=== PATIENT | female | born 1965 | race Caucasian/White ===

== ENCOUNTER 2024-08-05 09:49 | Emergency (ER) | payer BC, SELFPAY ==
--- NOTE | 2024-08-05 09:51 | XR_ITS ---
Examination: AP chest single view Technique one AP portable upright chest single view Exam date and time: August 05, 2024 1026 hours INDICATIONS: Chest pain today FINDINGS: Normal heart size. The lungs are clear. The osseous structures are intact IMPRESSION: No active disease
--- NOTE | 2024-08-05 09:51 | EKG_ITS ---
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
[2024-08-05 09:54] VITALS: BP 157/78; PULSE 104; RESP 22; TEMP 36.6; O2SAT 100; BMI 28.2
--- NOTE | 2024-08-05 09:58 | XR_ITS ---
Examination: CT brain head without contrast. 2-D sagittal coronal reconstructions Date and time of exam:August 05, 2024 1037 hours INDICATIONS: Onset dizziness and shaking today CTDI: vol (mGy):50.1 DLP: (mGycm):1008 Technique: Multiple CT axial sections of the brain have been obtained, 5 mm slice thickness. Contrast has not been administered. 2-D sagittal, coronal reconstructions have been obtained Low dose protocols were performed. One or more of the following dose reduction techniques were used; automated exposure control, adjustment of the mA and/or KV according to patient size, use of iterative reconstruction technique. Findings: No significant ventricular enlargement. Intra-axial or extra-axial hemorrhage density is not seen. No mass effect or midline shift Basal cisterns are not remarkable. Fourth ventricle is midline. Cranial vault intact. Impression: Negative for acute hemorrhage, mass effect or midline shift If symptoms persist, consider brain MRI follow-up
--- NOTE | 2024-08-05 09:58 | PD.EDRME ---
Rapid Medical Screening Exam RME Arrival date/time: 08/05/24 09:49 59-year-old female presents to the emergency department hyperventilating reports of bilateral arm tingling and leg tingling. Reports her symptoms started with ear pain that led to dizziness last night. Her symptoms progressed causing her to hyperventilate, bilateral arm tingling and leg tingling. + Chest pain I have greeted and performed a focused initial assessment of this patient. Initial appropriate labs ordered at this time. A comprehensive ED assessment and evaluation of the patient and analysis of all test and completion of medical decision making process will be conducted by additional ED provider. Chief Complaint: General Adult/Misc Complain Time Seen by Provider: 08/05/24 09:50 Vital signs: Vital Signs Temperature 97.9 F 08/05/24 09:54 Pulse Rate 104 H 08/05/24 09:54 Respiratory Rate 22 H 08/05/24 09:54 Blood Pressure 157/78 H 08/05/24 09:54 Pulse Oximetry (%) 100 08/05/24 09:54 Oxygen Delivery Method Room Air 08/05/24 09:54
[2024-08-05 10:28] LABS: Basophils % (Auto) 0 % (0-2.5); Eosinophils % (Auto) 1 % (0-10); Hematocrit 41.4 % (36.0-46.0); Hemoglobin 14.8 g/dL (12.0-16.0); Immature Granulocytes % (Auto) 0 % (0-0); Immature Granulocytes Auto 0.01 Thou/mm3 (0.00-0.00); Lymphocytes # (Auto) 1.5 Thou/mm3 (1.0-4.8); Lymphocytes % (Auto) 31 % (10-50); Mean Corpuscular HGB Conc 35.7 g/dl (31.0-37.0); Mean Corpuscular Hemoglobin 30.3 pg (25.0-35.0); Mean Corpuscular Volume 85 fL (80-100); Monocytes # (Auto) 0.3 Thou/mm3 (0.0-0.8); Monocytes % (Auto) 6 % (0-12); Neutrophils % (Auto) 62 % (37-80); Nucleated Red Blood Cell % 0 /100 WBC (0); Platelet Count 254 Thou/mm3 (140-440); Red Blood Count 4.89 Miln/mm3 (4.00-5.20); White Blood Count 4.9 Thou/mm3 (3.6-11.0)
[2024-08-05 10:44] LABS: B-Type Natriuretic Peptide < 20 pg/mL (0-100)
[2024-08-05 10:47] LABS: Alanine Aminotransferase 16 U/L (10-49); Albumin, Serum 4.6 gm/dL (3.4-4.8); Albumin/Globulin Ratio 1.7 (1.2-2.2); Alkaline Phosphatase 68 U/L (46-116); Anion Gap 14 (7-16); Aspartate Amino Transferase 17 U/L (0-34); BUN/Creatinine Ratio 19 Ratio (12-20); Bilirubin,Total 0.6 mg/dL (0.3-1.2); Blood Urea Nitrogen 15 mg/dL (9-23); Calcium 9.4 mg/dL (8.3-10.6); Calcium (Corrected) 9.4 mg/dL (8.5-10.1); Carbon Dioxide 19.5 mMol/L (20.0-31.0); Chloride 104 mMol/L (98-107); Creatinine (Component) 0.8 mg/dL (0.6-1.3); Estimated Creatinine Clearance 79.5 mL/min (>60); Globulin 2.7 gm/dL (2.3-3.5); Glucose 140 mg/dL (74-106); Lipase 51 U/L (12-53); Magnesium 1.8 mg/dL (1.6-2.6); Osmolality,Calculated 276 (275-295); Potassium 3.2 mMol/L (3.4-5.1); Sodium 137 mMol/L (136-145); Total Protein 7.3 gm/dL (5.7-8.2); Troponin I < 0.002 ng/mL (0.0-0.045); eGFR > 60 See Note
[2024-08-05 10:48] VITALS: PULSE 87
[2024-08-05 10:49] LABS: Prothrombin Time 10.9 Seconds (9.0-12.2)
--- NOTE | 2024-08-05 11:20 | EDNOTE_ITS ---
ED Dizzyness RME/HPI General Chief Complaint: General Adult/Misc Complain Stated Complaint: HAND AND FEET ARE NUMB Time Seen by Provider: 08/05/24 09:50 Arrival date/time: 08/05/24 09:49 Limitations: no limitations RME / HPI RME / HPI Narrative: 08/05/24 09:49 59-year-old female presents to the emergency department hyperventilating reports of bilateral arm tingling and leg tingling. Reports her symptoms started with ear pain that led to dizziness last night. Her symptoms progressed causing her to hyperventilate, bilateral arm tingling and leg tingling. + Chest pain I have greeted and performed a focused initial assessment of this patient. Initial appropriate labs ordered at this time. A comprehensive ED assessment and evaluation of the patient and analysis of all test and completion of medical decision making process will be conducted by additional ED provider. DR. GIRMM MAIN ED EVALUATION: 59 year old female with history of hypertension presents to the ED for evaluation of headache and dizziness today. Patient states at about 11pm last night she developed a headache, described as aching and located diffusely, rating as moderate. Accompanied by left ear pain. States due to the pain she was unable to sleep well and while sitting on the couch at 3AM today, she began to feel dizzy. Describes the dizziness as a swaying sensation that was not alleviated with lying down. Accompanied by nausea and vomiting. During that time denied any unilateral weakness, word findings difficulties, changes in speech, or loss of movement/sensation. However, at approximately 09:30 AM while sitting in the car en route to the ED, she began to have chest pain and bilateral upper and lower extremity tingling. States once she arrived to the ED was unable to get out of the car on her own and required assistance which is new and unusual for her. Per family at bedside, the patient is independent and lives an active lifestyle. Patient denies any history of similar symptoms. Denies any recent illness, fevers, chills, sweats, shortness of breath, cough, abdominal pain, diarrhea, or urinary symptoms. Family in the room add the patient has been under stress recently although patient denies feeling anxious or stressed. Related Data Allergies Allergy/AdvReac Type Severity Reaction Status Date / Time ampicillin Allergy Severe BREATHING Verified 04/11/20 18:44 PROBLEM AND HIVES. ketorolac tromethamine Allergy Severe ANAPHYLAXIS Verified 04/11/20 18:44 levofloxacin Allergy Severe HIVES AND Verified 04/11/20 18:44 DIFFICULTY BREATHING moxifloxacin Allergy Severe BREATHING Verified 04/11/20 18:44 PROBLEM AND HIVES Penicillins Allergy Severe BREATHING Verified 04/11/20 18:44 PROBLEM AND HIVES morphine Allergy ANAPHYLAXIS Verified 04/11/20 18:44 Review of Systems Review of Systems Narrative Review of Systems: GEN: No fever, no chills, no weight loss EYES: No discharge, no visual changes, no pain HEENT: +Left ear pain, no congestion, no sore throat PULM: No shortness of breath, no cough, no congestion CV: No chest pain, no dyspnea on exertion, no palpitations GI: +nausea, +vomiting, no diarrhea, no pain, no constipation : No frequency, no urgency, no dysuria MUSC/SKEL: No joint pain, no back pain SKIN: No rash PSYCH: No hallucinations, no depression, +increased stress per family HEME/LYMPH: No easy bleeding or bruising tendencies NEURO: +headache, +BL upper and lower extremity tingling, +dizziness Past Medical History Past Medical History CARDIAC: Positive Cardiac Disorders and Hypertension RESPIRATORY: Positive Respiratory Disorders and Pneumonia GASTROINTESTINAL: Positive Gastrointestinal Disorders and Irritable Bowel GENITOURINARY: Positive Genitourinary Disorders (prev. mass in left ureter) REPRODUCTIVE: Positive Previous Pregnancies OTHER HISTORY: Positive Anesthesia Reactions Family History FAMILY HISTORY: Positive Family Cardiac Disorders (heart disease, [place]) Surgical History SURGICAL: Positive Abdominal Surgery and Hysterectomy Social History SMOKING STATUS: Never smoker ED Exam General Limitations: Present no limitations General appearance: Present alert and anxious (tearful ) Head Head exam: Present atraumatic Eye Eye exam: Present normal appearance, PERRL and EOMI ENT ENT exam: Present normal exam, normal oropharynx and mucous membranes moist Neck Neck exam: Present normal inspection, full ROM and trachea midline Chest Chest inspection: Present normal inspection and symmetric chest wall rise Respiratory Respiratory exam: Present normal lung sounds bilaterally Cardiovascular Cardiovascular exam: Present regular rate, normal rhythm and normal heart sounds Abdominal Exam Abdominal exam: Present soft and normal bowel sounds Extremities Exam Extremities exam: Present normal inspection and full ROM Back Exam Back exam: Present normal inspection and full ROM Neurological Exam Neurological exam: Present alert, oriented X3, CN II-XII intact and reflexes normal; Absent motor sensory deficit Psychiatric Psychiatric exam: Present normal affect and normal mood Skin Skin exam: Present warm, dry, intact and normal color Course Quality Measures none Orders Category Date Time Status Boot Turner STAT Care 08/05/24 09:51 Completed Continuous Pulse Oximetry ONCE Care 08/05/24 09:51 Completed EKG (ED ONLY) *Do not use* NOW Care 08/05/24 09:51 Completed Insert IV STAT Care 08/05/24 09:[address] head/brain wo con Stat Exams 08/05/24 09:58 Completed EKG (ED Only) Stat Exams 08/05/24 09:51 Draft XR chest 1V portable Stat Exams 08/05/24 09:51 Completed B-Type Natriuretic Peptide Stat Lab 08/05/24 10:17 Completed CBC Stat Lab 08/05/24 10:17 Completed Comprehensive Metabolic Panel Stat Lab 08/05/24 10:17 Completed Lipase Stat Lab 08/05/24 10:17 Completed Magnesium Stat Lab 08/05/24 10:17 Completed Prothrombin Time with INR Stat Lab 08/05/24 10:17 Completed Troponin I Stat Lab 08/05/24 10:17 Completed Acetaminophen Ivpb [Ofirmev Inj] Med 08/05/24 12:28 Discontinued 1,000 mg in 100 ml IV X1 LORazepam [Ativan Inj] Med 08/05/24 12:30 Discontinued 1 mg IVP X1 ONE Potassium Chloride [K-Dur] Med 08/05/24 15:50 Discontinued 40 meq PO X1 ONE Oxygen Delivery NOW RT 08/05/24 09:51 Completed Reevaluation(s) Reevaluation #1: Had a long discussion with patient. We reviewed all the results, analysis, and treatment plans. Patient is amenable to discharge. Strict return precautions were outlined. Patient was discharged in stable condition. Time: 16:00 Vital Signs Vital signs: Vital Signs Temperature 97.9 F 08/05/24 09:54 Pulse Rate 104 H 08/05/24 09:54 Respiratory Rate 22 H 08/05/24 09:54 Blood Pressure 157/78 H 08/05/24 09:54 Pulse Oximetry (%) 100 08/05/24 09:54 Oxygen Delivery Method Room Air 08/05/24 09:54 Pulse ox is 100% on room air which is adequate. Dizziness MDM Narrative MDM Narrative:: Nimisha Piña am scribing for and in the presence of Dr. Grimm. Patient data External records reviewed:: [facility] previous records (/I reviewed RME note from 04/11/2020) Clinical information provided by:: patient and family Social determinants that could affect healthcare access:: none Patient has the following chronic illnesses:: hypertension How is presenting disease/condition affected by chronic disease/condition?: exacerbated by Evaluation data The following diagnostics were reviewed and interpreted by me:: lab results, radiology exam(s) and EKG tracing(s) (Sinus rhythm, rate 85, QT/QTc 393/436ms, no acute ischemic changes, no STEMI ) Lab and/or radiology exams considered but not ordered:: None Interpretation Summary: Ordering Physician: Jerad [facility]res[facility] L[facility]pez Date of Service: 08/05/24 Procedure(s): XR chest 1V portable Accession Number(s): [id number] cc: Roque Hopper MD; Maury Nur MD; Jerad ColindresKA[facility]ie López~ Examination: AP chest single view Technique one AP portable upright chest single view Exam date and time: August 05, 2024 1026 hours INDICATIONS: Chest pain today FINDINGS: Normal heart size. The lungs are clear. The osseous structures are intact IMPRESSION: No active disease Dictated By: Roque Hopper MD Signed By: <Electronically signed by Roque Hopper MD in OV> 08/05/24 1031 Ordering Physician: Jerad [facility]indresKA[facility] L[facility] Date of Service: 08/05/24 Procedure(s): CT head/brain wo con Accession Number(s): [id number] cc: Roque Hopper MD; Maury Nur MD; Jerad ColindresKA[facility]ie López~ Examination: CT brain head without contrast. 2-D sagittal coronal reconstructions Date and time of exam:August 05, 2024 1037 hours INDICATIONS: Onset dizziness and shaking today CTDI: vol (mGy):50.1 DLP: (mGycm):1008 Technique: Multiple CT axial sections of the brain have been obtained, 5 mm slice thickness. Contrast has not been administered. 2-D sagittal, coronal reconstructions have been obtained Low dose protocols were performed. One or more of the following dose reduction techniques were used; automated exposure control, adjustment of the mA and/or KV according to patient size, use of iterative reconstruction technique. Findings: No significant ventricular enlargement. Intra-axial or extra-axial hemorrhage density is not seen. No mass effect or midline shift Basal cisterns are not remarkable. Fourth ventricle is midline. Cranial vault intact. Impression: Negative for acute hemorrhage, mass effect or midline shift If symptoms persist, consider brain MRI follow-up Dictated By: Roque Hopper MD Signed By: <Electronically signed by Roque Hopper MD in OV> 08/05/24 1111 Medications / Prescriptions Medications or Prescriptions considered but not ordered:: None Medication administrations:: Medication Administration History Discontinued Medications Acetaminophen (Ofirmev Inj) 1,000 mg in 100 mls @ 250 mls/hr IV X1 ONE Stop: 08/05/24 12:51 Last Admin: 08/05/24 13:07 Dose: 250 mls/hr Documented By: SONG Lorazepam (Lorazepam 2 Mg/Ml Vial) 1 mg IVP X1 ONE Stop: 08/05/24 12:31 Last Admin: 08/05/24 18:25 Dose: Not Given Documented By: MaryanneT Non-Admin Reason: Patient Refused Potassium Chloride (Potassium Chloride 20 Meq Tabcr) 40 meq PO X1 ONE Stop: 08/05/24 15:51 Last Admin: 08/05/24 18:24 Dose: 40 meq Documented By: SONG See above Consultations Consultation(s) initiated? (list below): No Diagnosis Dizziness Differential Diagnosis: benign paroxysmal positional vertigo, orthostatic hypotension, vertebral basilar insufficiency, cerebrovascular accident and transient cerebral ischemia Most likely diagnosis given after review of the tests above:: Paresthesia Hypokalemia Stress disorder Admission Indicated Admission indicated?: not indicated Explain why admission is indicated or not indicated:: Does not meet admission criteria Admission Request Was there a request for admission?: No Disposition Plan Disposition Plan: Discharge Discharge Attestation Discharge Attestation: The patient and all family members were given an opportunity to ask questions and understood the discharge instructions. Discharge instructions specifically effects, indications for sooner follow up or return to the emergency department, and the expected course of current diagnosis. Patient condition: Stable Discharge Plan Plan Patient Disposition: HOME (Self Care) Prescriptions/Referrals Referrals: Maury Nur MD [Primary Care Provider] - In 1 week Problem List Clinical Impression: Paresthesia, Hypokalemia, Acute stress disorder Patient/Caregiver Discharge Instructions Education Materials: Responding Better to Stress, ED Hypokalemia, ED Paraesthesias Additional Instructions: Follow up with your doctor within 2-3 days for reassessment. Return to the ED if your develop any new or worsening symptoms. Print Language: Macedonian Stand Alone Forms: María Award Info., Work/School Release, Patient Portal Info Letter
[2024-08-05 12:02] VITALS: PULSE 83; RESP 18; RESP 99
[2024-08-05] MEDS: ACETAMINOPHEN IVPB 1,000 MG/100 ML VIAL 250 MG IV (13:07)
[2024-08-05 14:20] VITALS: BP 130/88; PULSE 90; RESP 12; TEMP 36.1; O2SAT 98
[2024-08-05 18:08] VITALS: BP 141/89; PULSE 88; RESP 12; TEMP 37.2; O2SAT 98
[2024-08-05] MEDS: POTASSIUM CHLORIDE 20 mEq TABCR 40 MEQ PO (18:24)
[2024-08-05 18:38] VITALS: BP 141/89; PULSE 88; RESP 12; TEMP 37.2; O2SAT 98
== END 2024-08-05 18:39 | disposition home or self-care (01) ==
PROVIDERS: Nurse Practitioner Primary Care; Emergency Provider Family Medicine; PCP Family Medicine
DX: R20.2 Paresthesia of skin (principal); E87.6 Hypokalemia; F43.0 Acute stress reaction; R07.9 Chest pain, unspecified; I10 Essential (primary) hypertension; R51.9 Headache, unspecified; R42 Dizziness and giddiness; H92.02 Otalgia, left ear
CPT/HCPCS: 36415; 70450; 71045; 80053; 83690; 83735; 83880; 84484; 85025; 85610; 93005; 99284; J0131; A9270

== ENCOUNTER → 2024-08-18 | Outpatient (CLI) | payer BC, SELFPAY ==
--- NOTE | 2024-08-18 14:30 | ECHO_ITS ---
Transthoracic Echo Report Ht (in): 65 Wt (lb): 164 Exam Location: Echo Lab Status: Preadmit Second Operator: CHARAN Pérez^^^^ Indications: Procedure Performed: BP: / HR: MEASUREMENTS (Male / Female) Normal Values 2D ECHO LV Diastolic Diameter PLAX 3.4 cm 4.2 - 5.9 / 3.9 - 5.3 cm LV Systolic Diameter PLAX 2.2 cm IVS Diastolic Thickness 1.0 cm 0.6 - 1.0 / 0.6 - 0.9 cm LVPW Diastolic Thickness 1.0 cm 0.6 - 1.0 / 0.6 - 0.9 cm LV Relative Wall Thickness 0.6 LVOT Diameter 1.8 cm Aortic Root Diameter 3.5 cm LA Systolic Diameter LX 3.5 cm 3.0 - 4.0 / 2.7 - 3.8 cm LA Volume Index 21.4 cm?/m? 16 - 28 cm?/m? Ascending Aorta Diameter 3.0 cm DOPPLER AV Peak Velocity 133.5 cm/s AV Peak Gradient 7.1 mmHg AV Mean Gradient 5.0 mmHg AV Velocity Time Integral 27.5 cm LVOT Peak Velocity 98.3 cm/s LVOT Peak Gradient 3.9 mmHg LVOT Velocity Time Integral 25.1 cm AV Area Cont Eq vti 2.3 cm? AV Area Cont Eq pk 1.9 cm? MV Area PHT 3.7 cm? Mitral E Point Velocity 77.0 cm/s Mitral A Point Velocity 76.6 cm/s Mitral E to A Ratio 1.0 LV E' Lateral Velocity 6.8 cm/s Mitral E to LV E' Lateral Ratio 11.3 LV E' Septal Velocity 6.7 cm/s Mitral E to LV E' Septal Ratio 11.4 TR Peak Velocity 244.0 cm/s TR Peak Gradient 23.8 mmHg PV Peak Velocity 99.0 cm/s PV Peak Gradient 3.9 mmHg RVOT Peak Velocity 44.3 cm/s FINDINGS Left Ventricle Normal left ventricular size, wall thickness, systolic function with no obvious regional wall motion abnormalities.there is grade I diastolic dysfunction of the left ventricle (impaired relaxation pattern).the left ventricular ejection fraction is normal, estimated at 55-60%. Right Ventricle The right ventricle is normal in size and systolic function. The estimated right ventricular systolic pressure, 25 mmHg. Left Atrium The left atrium is normal by two-dimensional, color flow and Doppler imaging with no structural abnormalities, no thrombus formation present. Right Atrium The right atrium is normal by two-dimensional imaging, color flow and Doppler imaging with no structural abnormalities, no thrombus formation present. Atrial Septum The interatrial septum appears normal with no evidence of a shunt. Aorta The aorta is normal by two-dimensional, color flow and Doppler interrogation. Mitral Valve Trace to mild mitral regurgitation. Mild mitral annular calcification. Aortic Valve The aortic valve is trileaflet and normal by two-dimensional, color flow and Doppler interrogation. There is no significant aortic valve regurgitation. Tricuspid Valve There is mild tricuspid valve regurgitation. Pulmonic Valve Trivial pulmonic valve regurgitation. Vessels The pulmonary artery appears normal. The inferior vena cava pulmonary and hepatic veins appear normal. Pericardium The pericardium is normal by two-dimensional imaging. There is no significant pericardial effusion. CONCLUSIONS Indication: Shortness of breath Normal LV size and function with an estimated EF of 55 to 60%. Diastolic function appears normal Normal RV size and function with. Estimated RVSP normal at 25 mmHg. Trace PI, trace MR and mild TR. No evidence of any pericardial effusion Sharad Mead (Electronically Signed) Final Date: 21 August 2024 06:03
== END | disposition home or self-care (01) ==
LOC: SDIM 14:01
PROVIDERS: PCP Family Medicine; Referring Provider Family Medicine; Visit Provider Family Medicine
DX: I08.1 Rheumatic disorders of both mitral and tricuspid valves (principal)
CPT/HCPCS: 93306

== ENCOUNTER 2024-11-21 14:08 | Emergency (ER) | payer BC, SELFPAY ==
[2024-11-21 14:09] VITALS: BMI 26.2
[2024-11-21 14:15] VITALS: BP 151/89; PULSE 99; RESP 20; TEMP 36.7; O2SAT 99
--- NOTE | 2024-11-21 14:29 | XR_ITS ---
Examination: CT abdomen and pelvis without contrast. Coronal 3-D reconstructions. Sagittal 2-D reconstructions. Date and time of exam:November 21, 2024, 1504 hrs. Indications: Left-sided abdominal pain vomiting blood in the stool today CTDI: vol (mGy): 8.42 DLP: (mGycm): 133. Technique: Axial images of the abdomen have been obtained, 3 mm slice thickness Intravenous contrast material has not been administered. Low dose protocols were performed. One or more of the following dose reduction techniques were used; automated exposure control, adjustment of the mA and/or KV according to patient size, use of iterative reconstruction technique. Findings: No focal liver or splenic lesions. Absent gallbladder. No pancreatic mass. No renal or ureteral calculi. No hydronephrosis. Aorta normal size. Normal appendix. Severe inflammatory change involving the entire colon with wall thickening No bladder mass Prominent osteopenia with chronic osteoporotic compression T11 Impression: Severe diffuse colitis pattern, differential would include ulcerative colitis, Crohn's disease
--- NOTE | 2024-11-21 14:30 | PD.EDRME ---
Rapid Medical Screening Exam RME Arrival date/time: 11/21/24 14:08 59-year-old female with no known medical history presents to the emergency room with a chief complaint of 10 out of 10 abdominal pain and passing blood clots in her stool x 2 days I have greeted and performed a focused initial assessment of this patient. A comprehensive ED assessment and evaluation of the patient, analysis of all test results, and completion of the medical decision making process will be conducted by additional ED providers. Chief Complaint: Abdominal Pain Time Seen by Provider: 11/21/24 14:10 Vital signs: Vital Signs Temperature 98.1 F 11/21/24 14:15 Pulse Rate 99 11/21/24 14:15 Respiratory Rate 20 11/21/24 14:15 Blood Pressure 151/89 H 11/21/24 14:15 Pulse Oximetry (%) 99 11/21/24 14:15 Oxygen Delivery Method Room Air 11/21/24 14:15 Vital signs reviewed by provider: Yes
[2024-11-21 14:51] LABS: Basophils # (Auto) 0.0 Thou/mm3 (0.0-0.2); Basophils % (Auto) 0 % (0-2.5); Eosinophils # (Auto) 0.1 Thou/mm3 (0.0-0.5); Eosinophils % (Auto) 0 % (0-10); Hematocrit 42.4 % (36.0-46.0); Hemoglobin 15.1 g/dL (12.0-16.0); Immature Granulocytes Auto 0.02 Thou/mm3 (0.00-0.00); Lymphocytes # (Auto) 1.5 Thou/mm3 (1.0-4.8); Lymphocytes % (Auto) 14 % (10-50); Mean Corpuscular HGB Conc 35.6 g/dl (31.0-37.0); Mean Corpuscular Hemoglobin 30.8 pg (25.0-35.0); Mean Corpuscular Volume 86 fL (80-100); Monocytes # (Auto) 0.5 Thou/mm3 (0.0-0.8); Monocytes % (Auto) 4 % (0-12); Neutrophils # (Auto) 9.3 Thou/mm3 (1.8-7.7); Neutrophils % (Auto) 82 % (37-80); Nucleated Red Blood Cell # 0.00 Thou/mm3 (0.00-0.00); Nucleated Red Blood Cell % 0 /100 WBC (0); Platelet Count 262 Thou/mm3 (140-440); RDW Standard Deviation 38.5 fL (36.4-46.3); Red Blood Count 4.91 Miln/mm3 (4.00-5.20); White Blood Count 11.4 Thou/mm3 (3.6-11.0)
[2024-11-21] MEDS: ACETAMINOPHEN 325 MG TABLET 650 MG PO (14:58)
[2024-11-21 15:06] LABS: Alanine Aminotransferase 12 U/L (10-49); Albumin, Serum 4.5 gm/dL (3.4-4.8); Albumin/Globulin Ratio 1.8 (1.2-2.2); Alkaline Phosphatase 63 U/L (46-116); Anion Gap 11 (7-16); Aspartate Amino Transferase 14 U/L (0-34); BUN/Creatinine Ratio 18 Ratio (12-20); Bilirubin,Total 0.9 mg/dL (0.3-1.2); Blood Urea Nitrogen 14 mg/dL (9-23); Calcium 9.2 mg/dL (8.3-10.6); Calcium (Corrected) 9.2 mg/dL (8.5-10.1); Carbon Dioxide 23.8 mMol/L (20.0-31.0); Chloride 106 mMol/L (98-107); Creatinine (Component) 0.8 mg/dL (0.6-1.3); Estimated Creatinine Clearance 74.2 mL/min (>60); Globulin 2.5 gm/dL (2.3-3.5); Glucose 102 mg/dL (74-106); Lipase 39 U/L (12-53); Osmolality,Calculated 281 (275-295); Potassium 3.6 mMol/L (3.4-5.1); Sodium 141 mMol/L (136-145); Total Protein 7.0 gm/dL (5.7-8.2); eGFR > 60 See Note
[2024-11-21 15:54] VITALS: BP 150/93; PULSE 88; RESP 17; TEMP 36.7; O2SAT 99
--- NOTE | 2024-11-21 16:41 | PD.EDABDPN ---
ED Abdominal Pain RME/HPI General Chief Complaint: Abdominal Pain Stated complaint: ABD PAIN W/ VOMITING; STOOLS ARE BLOOD W/ CLOTS Time seen by provider: 11/21/24 14:10 Arrival date/time: 11/21/24 14:08 Limitations: no limitations RME / HPI RME / HPI narrative: 11/21/24 14:08 59-year-old female with no known medical history presents to the emergency room with a chief complaint of 10 out of 10 abdominal pain and passing blood clots in her stool x 2 days I have greeted and performed a focused initial assessment of this patient. A comprehensive ED assessment and evaluation of the patient, analysis of all test results, and completion of the medical decision making process will be conducted by additional ED providers. DR. FILOMENA MIKE ED EVALUATION 59 year old female with history of irritable bowel syndrome, hypertension, who presents to the ED for evaluation of abdominal pain. Reports the onset of symptoms yesterday afternoon, when she began feeling unwell and nauseated. She experienced the urge to have a bowel movement, but had difficulty passing stool and only produced a small, hard bowel movement at 3:00 PM. Shortly thereafter, she developed more frequent, loose stools, with a bowel movement occurring approximately every hour starting at 7:00 PM. These loose stools have been associated with bright red blood and clots. States the abdominal pain is described as a moderate, aching cramping sensation, localized to the left side. Associated with nausea and vomiting, which began in the evening. Additionally, the patient reports feeling globally weak. She notes that her last normal bowel movement occurred 5 days ago. Denies any fevers, chills, chest pain, cough, shortness of breath, or urinary symptoms. The patient has a known history of intermittent constipation, which became more pronounced after starting Wegovy, but denies any previous episodes of GI bleed. Abdominal surgeries include two surgeries for endometrial masses and cholecystectomy. Related Data Previous Rx's ?Medication ?Instructions ?Recorded acetaminophen 500 mg capsule 1,000 mg (2 x 500 mg) PO Q6H PRN 11/21/24 pain 5 days #20 caps azithromycin 500 mg tablet 500 mg PO QDAY 3 days #3 tabs 11/21/24 Allergies Allergy/AdvReac Type Severity Reaction Status Date / Time ampicillin Allergy Severe BREATHING Verified 11/21/24 14:12 PROBLEM AND HIVES. ketorolac tromethamine Allergy Severe ANAPHYLAXIS Verified 11/21/24 14:12 levofloxacin Allergy Severe HIVES AND Verified 11/21/24 14:12 DIFFICULTY BREATHING meperidine (From Demerol) Allergy Severe Vomiting Verified 11/21/24 14:12 moxifloxacin Allergy Severe BREATHING Verified 11/21/24 14:12 PROBLEM AND HIVES Penicillins Allergy Severe BREATHING Verified 11/21/24 14:12 PROBLEM AND HIVES ketorolac (From Toradol) Allergy Intermediate Hives Verified 11/21/24 14:12 morphine Allergy ANAPHYLAXIS Verified 11/21/24 14:12 Review of Systems Review of Systems Systems Reviewed: All systems reviewed, normal except as documented Past Medical History Past Medical History NEUROLOGIC: Negative Neurological Disorders CARDIAC: Positive Cardiac Disorders and Hypertension; Negative Congestive Heart Failure RESPIRATORY: Positive Pneumonia; Negative Chronic Obstructive Pulmonary Disease (COPD) GASTROINTESTINAL: Positive Gastrointestinal Disorders and Irritable Bowel GENITOURINARY: Positive Genitourinary Disorders; Negative Renal Disease REPRODUCTIVE: Positive Previous Pregnancies; Negative Pelvic Inflammatory Disease MUSCULOSKELETAL: Negative Musculoskeletal Disorders ENDOCRINE: Negative Endocrine Disorders, Diabetes Mellitus Type 1 or Diabetes Mellitus Type 2 HEMATOLOGIC: Negative Blood Disorders OTHER HISTORY: Positive Anesthesia Reactions; Negative Autoimmune Disease, Down Syndrome, Developmental Delay, Shingles, Blood Transfusions, MRSA, Clostridium Difficile or Cancer Family History FAMILY HISTORY: Positive Family Cardiac Disorders Surgical History SURGICAL: Positive Abdominal Surgery and Hysterectomy; Negative Cardiac Surgery, Endocrine Surgery or Joint Replacement Social History SMOKING STATUS: Never smoker ED Exam General Limitations: Present no limitations General appearance: Present alert and in no apparent distress Head Head exam: Present atraumatic and normocephalic Eye Eye exam: Present normal appearance, PERRL and EOMI ENT ENT exam: Present normal exam, normal oropharynx and mucous membranes moist Neck Neck exam: Present normal inspection, full ROM and trachea midline Chest Chest inspection: Present normal inspection and symmetric chest wall rise Respiratory Respiratory exam: Present normal lung sounds bilaterally Cardiovascular Cardiovascular exam: Present regular rate, normal rhythm and normal heart sounds Abdominal Exam Abdominal exam: Present soft, tenderness (minimal tenderness to palpation in the left lower quadrant without rebound guarding or rigidity) and normal bowel sounds Extremities Exam Extremities exam: Present normal inspection and full ROM Back Exam Back exam: Present normal inspection and full ROM Neurological Exam Neurological exam: Present alert, oriented X3 and CN II-XII intact Psychiatric Psychiatric exam: Present normal affect and normal mood Skin Skin exam: Present warm, dry, intact and normal color Course Quality Measures none Orders Category Date Time Status CT abdomen pelvis wo con Stat Exams 11/21/24 14:29 Completed CBC Stat Lab 11/21/24 14:41 Completed CMP [Comprehensive Metabolic Panel] Stat Lab 11/21/24 14:41 Completed Lipase Stat Lab 11/21/24 14:41 Completed UA [Urinalysis] Stat Lab 11/21/24 14:29 Ordered Urine Culture Stat Lab 11/21/24 14:29 Ordered Acetaminophen Tab [Tylenol Tab] Med 11/21/24 14:29 Discontinued 650 mg PO X1 ONE Ondansetron Odt [Zofran Odt] Med 11/21/24 17:00 Discontinued 4 mg PO X1 ONE fentaNYL INJ [Sublimaze Inj] Med 11/21/24 17:00 Discontinued 50 mcg IM X1 ONE Vital Signs Vital signs: Vital Signs Temperature 98.1 F 11/21/24 14:15 Pulse Rate 99 11/21/24 14:15 Respiratory Rate 20 11/21/24 14:15 Blood Pressure 151/89 H 11/21/24 14:15 Pulse Oximetry (%) 99 11/21/24 14:15 Oxygen Delivery Method Room Air 11/21/24 14:15 Pulse ox is 99% on room air which is adequate. Abdominal Pain MDM MDM Narrative MDM Narrative:: Nimisha Piña am scribing for and in the presence of Dr. Sky. Patient data [place] [facility] [place]I reviewed ED visit on 08/05/2024 ) Clinical information provided by:: patient Social determinants that could affect healthcare access:: none Patient has the following chronic illnesses:: irritable bowel syndrome, hypertension How is presenting disease/condition affected by chronic disease/condition?: exacerbated by Evaluation data The following diagnostics were reviewed and interpreted by me:: lab results and radiology exam(s) Lab and/or radiology exams considered but not ordered:: None Interpretation Summary: Ordering Physician: Cipriano Zhang Date of Service: 11/21/24 Procedure(s): CT abdomen pelvis wo con Accession Number(s): [id number] cc: Cipriano Zhang; Roque Hopper MD; Maury Nur MD~ Examination: CT abdomen and pelvis without contrast. Coronal 3-D reconstructions. Sagittal 2-D reconstructions. Date and time of exam:November 21, 2024, 1504 hrs. Indications: Left-sided abdominal pain vomiting blood in the stool today CTDI: vol (mGy): 8.42 DLP: (mGycm): 133. Technique: Axial images of the abdomen have been obtained, 3 mm slice thickness Intravenous contrast material has not been administered. Low dose protocols were performed. One or more of the following dose reduction techniques were used; automated exposure control, adjustment of the mA and/or KV according to patient size, use of iterative reconstruction technique. Findings: No focal liver or splenic lesions. Absent gallbladder. No pancreatic mass. No renal or ureteral calculi. No hydronephrosis. Aorta normal size. Normal appendix. Severe inflammatory change involving the entire colon with wall thickening No bladder mass Prominent osteopenia with chronic osteoporotic compression T11 Impression: Severe diffuse colitis pattern, differential would include ulcerative colitis, Crohn's disease Dictated By: Roque Hopper MD Signed By: <Electronically signed by Roque Hopper MD in OV> 11/21/24 1612 Medications / Prescriptions Medications or Prescriptions considered but not ordered:: None Medication administrations:: Medication Administration History Discontinued Medications Acetaminophen (Acetaminophen 325 Mg Tablet) 650 mg PO X1 ONE Stop: 11/21/24 14:30 Last Admin: 11/21/24 14:58 Dose: 650 mg Documented By: JOSE LUIS Fentanyl Citrate (Fentanyl Cit Inj 50 Mcg/Ml Amp 2ml) 50 mcg IM X1 ONE Stop: 11/21/24 17:01 Last Admin: 11/21/24 17:14 Dose: 50 mcg Documented By: PORFIRIO Ondansetron HCl (Ondansetron Odt 4 Mg Tabrap) 4 mg PO X1 ONE; Protocol Stop: 11/21/24 17:01 Last Admin: 11/21/24 17:14 Dose: 4 mg Documented By: PORFIRIO See above Consultations Consultation(s) initiated? (list below): No Diagnosis Differential diagnosis abdominal pain: abdominal pain, constipation, diverticulitis and other (GI bleed, colitis ) Most likely diagnosis given after review of the tests above:: Hematochezia Bacterial dysentery Admission Indicated Admission indicated?: not indicated Admission Request Was there a request for admission?: No Disposition Plan Disposition Plan: Discharge Discharge Attestation Discharge Attestation: The patient and all family members were given an opportunity to ask questions and understood the discharge instructions. Discharge instructions specifically effects, indications for sooner follow up or return to the emergency department, and the expected course of current diagnosis. Patient condition: Stable Discharge Plan Plan Patient Disposition: HOME (Self Care) Discharge Disposition comment: Stable for discharge home Patient condition on transfer: Stable Prescriptions/Referrals Prescriptions/Med Rec: New azithromycin 500 mg tablet 500 mg PO QDAY 3 Days Qty: 3 0RF acetaminophen 500 mg capsule 1,000 mg PO Q6H PRN (Reason: pain) 5 Days Qty: 20 0RF Referrals: Jama Cerda MD [Physician] - In 1 week Maury Nur MD [Primary Care Provider] - In 1 week Problem List Clinical Impression: Hematochezia, Bacterial dysentery Patient/Caregiver Discharge Instructions Discharge Activity: activity as tolerated Diet Instructions: Please just take liquids such as chicken noodle soup and Gatorade for the first 24 hours. Education Materials: Bacterial Gastroenteritis, ED Gastroenteritis, Bacterial (Adult), ED Diarrhea, Bacterial (Adult) Additional Instructions: Today you were seen in the ER for abdominal pain and what we call hematochezia, which is bright red blood from the anus. You also have pain in the left lower region of your abdomen. Your blood work is reassuring, including your liver function test, your kidney function test, your electrolytes as well as the rest of your blood work, are reassuring. Your vital signs are stable and normal. The CT scan shows evidence of colitis. This is an inflammation of the colon. This is what is likely causing your bloody stools. There are several possible causes of this inflammation. One of them would be infection and in this case it would be a bacterial infection. It is very very important that you do not take any antidiarrhea medications. Those can hurt you when you have a bacterial dysentery. I have ordered an antibiotic called azithromycin or Zmax. You should take 500 mg each day for 3 days. Also I called in a prescription for the extra strength Tylenol. You have ketorolac listed as a medication that causes you a severe reaction. This medication is very similar to ibuprofen. I am will not be able to give you a prescription for ibuprofen because of that. Also it is possible that you have an inflammatory colitis like Crohn's disease or ulcerative colitis. So have given you the contact information for Dr. Cerda. Dr. Cerda is our parcel post order clerk or specialist in this area that is on-call for our ER. Please just give his office a call and make a follow-up appointment for that sometime in the next several days Please return to the ER if you have any worsening or any further medical problems we will help you. Otherwise you should follow-up with your primary care doctor within the next several days Print Language: Armenian Stand Alone Forms: María Award Info., Patient Portal Info Letter
[2024-11-21] MEDS: ONDANSETRON ODT 4 MG TABRAP PO (17:14)
[2024-11-21] MEDS: fentaNYL CIT INJ 50 mCg/ML AMP 2ML IM (17:14)
--- NOTE | 2024-11-21 17:40 | PC.NURSE ---
PTS RIDE IS HERE, FOR SAFE DISCHARGE. PT AMBULATES INDEPENDENTLY W/STEADY GAIT AT DISCHARGE.
== END 2024-11-21 17:42 | disposition home or self-care (01) ==
PROVIDERS: Nurse Practitioner Family; Emergency Provider Emergency Medicine; PCP Family Medicine
DX: A09 Infectious gastroenteritis and colitis, unspecified (principal)
CPT/HCPCS: 36415; 74176; 80053; 81001; 83690; 85025; 87086; 96372; 99283; J3010; Q0162; A9270